=== PATIENT | female | born 1980 ===

== ENCOUNTER → 2018-06-04 21:03 | Outpatient (REF) | payer OTHER, SELFPAY ==
[2018-06-04 21:33] LABS: Add Manual Diff / Slide Review NO; Basophils Percent Auto 0.4 % (0-2); Eosinophils Percent Auto 2.3 % (2-4); Hematocrit 42.9 % (36-46); Hemoglobin 14.3 g/dL (12.0-16.0); Lymphocytes Percent Auto 20.6 % (25-40); Mean Corpuscular HGB Conc 33.2 % (30-36); Mean Corpuscular Hemoglobin 34.7 PG (26-34); Mean Corpuscular Volume 104.4 fL (80-100); Monocytes Percent Auto 17.3 % (3-14); Neutrophils Absolute Auto 3100 /uL (1500-7000); Neutrophils Percent Auto 59.4 % (50-75); Platelet Count 242 X10^3/uL (150-400); Red Blood Cell Count 4.11 X10^6/uL (4.0-5.2); Red Cell Distribution Width 12.6 % (11.6-14.8); White Blood Cell Count 5.1 X10^3/uL (4.5-11.0)
[2018-06-04 21:48] LABS: Alanine Aminotransferase 23 IU/L (9-52); Albumin 4.3 g/dL (3.5-5.0); Albumin Globulin Ratio 1.3 (1.0-2.8); Alkaline Phosphatase 52 U/L (38-126); Aspartate Aminotransferase 35 IU/L (14-36); BUN Creatinine Ratio 15.7 (6-22); Bilirubin Total 0.4 mg/dL (0.2-1.3); Blood Urea Nitrogen 11 mg/dL (7-17); Calcium 9.7 mg/dL (8.4-10.2); Carbon Dioxide 30 mmol/L (22-32); Chloride 103 mmol/L (98-107); Estimated Glomerular Filt Rate > 60.0 mL/min (>60); Globulin 3.3 g/dL (1.7-4.1); Glucose 88 mg/dL (70-100); Potassium 4.3 mmol/L (3.4-5.1); Sodium 142 mmol/L (137-145); Total Protein 7.6 g/dL (6.3-8.2)
[2018-06-04 22:13] LABS: Erythrocyte Sedimentation Rate 6 MM/HR (0-20)
[2018-06-05 10:47] LABS: Iron 63 ug/dL (37-170)
[2018-06-05 11:24] LABS: Ferritin 65.2 ng/mL (6.27-137); HEMOLYSIS < 15 (0-50)
[2018-06-05 11:54] LABS: Folate > 20.0 ng/mL (2.76-20.0); Vitamin B12 280 pg/mL (239-931)
== END ==
LOC: LAB 21:03
PROVIDERS: Visit Provider Naturopath
DX: L50.9 Urticaria, unspecified (principal)
CPT/HCPCS: 36415; 80053; 82607; 82728; 82746; 83540; 85025; 85651